=== PATIENT | female | born 2000 | race Caucasian/White ===

== ENCOUNTER 2021-08-04 09:57 | Emergency (ER) | payer OTHER ==
[2021-08-04 10:34] VITALS: BP 98/65; PULSE 74; TEMP 97.9; BMI 47.8
[2021-08-04] MEDS ORDERED: cefTRIAXone SODIUM 1 GM VIAL ONE (11:50)
[2021-08-04 12:34] LABS: BASO % 0.4 % (0-2.0); EOS % 1.6 % (0-4.5); HEMATOCRIT 38.7 % (32.4-45.2); LYMPH % 34.4 % (8-40); MCH 26.6 pg (25.7-33.7); MCHC 33.5 g/dl (32.0-36.0); MEAN CELL VOLUME 79.5 fl (80-96); MEAN PLT VOLUME 7.6 fl (7.5-11.1); MONO % 5.3 % (3.8-10.2); NEUT % 58.3 % (42.8-82.8); PLATELET COUNT 327 10^3/uL (134-434); RBC 4.87 M/mm3 (3.60-5.2); WHITE BLOOD COUNT 7.4 K/mm3 (4.0-10.0)
[2021-08-04 12:36] LABS: URINE APPEARANCE CLEAR; URINE BILIRUBIN NEGATIVE (NEGATIVE); URINE COLOR YELLOW; URINE GLUCOSE (UA) NEGATIVE (NEGATIVE); URINE KETONE NEGATIVE (NEGATIVE); URINE LEUK ESTERASE NEGATIVE (NEGATIVE); URINE NITRITE NEGATIVE (NEGATIVE); URINE PROTEIN NEGATIVE (NEGATIVE); URINE UROBILINOGEN 0.2 mg/dL (0.2-1.0)
[2021-08-04 12:48] LABS: HCG,QUALITATIVE URINE NEGATIVE
[2021-08-04 13:05] LABS: CALCIUM 8.8 mg/dL (8.5-10.1)
[2021-08-04 13:06] LABS: ALBUMIN 3.7 g/dl (3.4-5.0); BLOOD UREA NITROGEN 13.4 mg/dL (7-18)
[2021-08-04 13:09] LABS: CREATININE 0.6 mg/dL (0.55-1.3)
[2021-08-04 13:11] LABS: BILIRUBIN,TOTAL 0.4 mg/dL (0.2-1); TOT PROT 7.3 g/dl (6.4-8.2)
== END 2021-08-04 13:15 | disposition left against medical advice (07) ==
LOC: JER 09:57
DX: R10.2 Pelvic and perineal pain (principal)
CPT/HCPCS: 36415; 80053; 81003; 84703; 85025; 87070; 87086; 87205; 87491; 87591; 99284-25

== ENCOUNTER 2022-06-09 16:21 | Emergency (ER) | payer OTHER ==
[2022-06-09 17:00] VITALS: BP 110/50; PULSE 65; RESP 18; TEMP 98.8; BMI 43.0
[2022-06-09] MEDS ORDERED: DEXAMETHASONE SOD PHOSPHATE 10 MG/1 ML VIAL IM ONE (18:02)
[2022-06-09] MEDS ORDERED: KETOROLAC TROMETHAMINE 30 MG/1 ML VIAL IM ONE (18:02)
[2022-06-09] MEDS ORDERED: KETOROLAC TROMETHAMINE 30 MG/1 ML VIAL ONE (19:03)
[2022-06-09] MEDS ORDERED: DEXAMETHASONE SOD PHOSPHATE 10 MG/1 ML VIAL ONE (19:03)
[2022-06-09] MEDS ORDERED: ACETAMINOPHEN 325 MG TABLET (FP) ONE (19:55)
[2022-06-09] MEDS ORDERED: ACETAMINOPHEN 325 MG TABLET (FP) PO ONE (19:57)
== END 2022-06-09 20:59 | disposition home or self-care (01) ==
LOC: JERFT 16:21 → JER 16:21
PROC: 3E023GC Introduction of Other Therapeutic Substance into Muscle, Percutaneous Approach (ICD-10-PCS; principal; 2022-06-09)
DX: B34.9 Viral infection, unspecified (principal)
CPT/HCPCS: 0241U-QW; 87651; 99284-25; J1100

== ENCOUNTER 2022-10-26 22:28 | Emergency (ER) | payer OTHER ==
[2022-10-26 22:34] VITALS: BP 111/49; PULSE 75; RESP 20; TEMP 97.6; BMI 43.0
== END 2022-10-26 23:53 | disposition home or self-care (01) ==
LOC: JERFT 22:28
DX: R09.81 Nasal congestion (principal); J30.9 Allergic rhinitis, unspecified; H10.13 Acute atopic conjunctivitis, bilateral; Z20.822 Contact with and (suspected) exposure to COVID-19
CPT/HCPCS: 0241U-QW; 99283-25

== ENCOUNTER 2022-11-04 12:48 | Emergency (ER) | payer OTHER ==
[2022-11-04 13:16] VITALS: BP 150/92; PULSE 76; RESP 17; TEMP 98; BMI 48.8
[2022-11-04] MEDS ORDERED: ACETAMINOPHEN 500 MG TABLET (FP) PO ONE (13:22)
[2022-11-04] MEDS ORDERED: ACETAMINOPHEN 500 MG TABLET (FP) ONE (13:23)
== END 2022-11-04 14:44 | disposition home or self-care (01) ==
LOC: JERFT 12:48
DX: M25.571 Pain in right ankle and joints of right foot (principal); M79.671 Pain in right foot; S93.491A Sprain of other ligament of right ankle, initial encounter; X50.1XXA Overexertion from prolonged static or awkward postures, initial encounter
CPT/HCPCS: 73610-TC-RT-FY; 73630-TC-RT-FY; 99283-25

== ENCOUNTER 2022-12-01 08:33 | Emergency (ER) | payer OTHER ==
[2022-12-01 08:39] VITALS: BP 104/56; PULSE 82; RESP 18; TEMP 98.6; BMI 43.0
[2022-12-01] MEDS ORDERED: IBUPROFEN 600 MG TABLET (FP) PO ONE ×2 (09:14→09:17)
== END 2022-12-01 11:24 | disposition home or self-care (01) ==
LOC: JERFT 08:33
DX: S60.111A Contusion of right thumb with damage to nail, initial encounter (principal); X58.XXXA Exposure to other specified factors, initial encounter
CPT/HCPCS: 73140-TC-RT-FY; 99283-25

== ENCOUNTER 2022-12-03 19:32 | Emergency (ER) | payer OTHER ==
[2022-12-03 19:41] VITALS: BP 110/75; PULSE 108; RESP 20; TEMP 98.8; BMI 55.6
[2022-12-03] MEDS ORDERED: SODIUM CHLORIDE 0.9% 500 ML INFUS.BAG IV ONE (21:11)
[2022-12-03] MEDS ORDERED: PROCHLORPERAZINE INJECTION 10 MG/2 ML VIAL IVPB ONE (21:12)
[2022-12-03] MEDS ORDERED: MAG HYDROX/AL HYDROX/SIMETH 30 ML UNIT-DOSE CUP PO ONE (21:13)
[2022-12-03] MEDS ORDERED: FAMOTIDINE 20 MG/50 ML IVPB 20 MG/50 ML MG IVPB ONE (21:13)
[2022-12-03] MEDS ORDERED: ACETAMINOPHEN 500 MG TABLET (FP) PO ONE (21:43)
[2022-12-03] MEDS ORDERED: METOCLOPRAMIDE HCL 10 MG TABLET (FP) PO ONE ×2 (21:43→21:48)
[2022-12-03] MEDS ORDERED: FAMOTIDINE 20 MG TABLET PO ONE (21:43)
[2022-12-03] MEDS ORDERED: MAG HYDROX/AL HYDROX/SIMETH 30 ML UNIT-DOSE CUP ONE (21:48)
[2022-12-03] MEDS ORDERED: ACETAMINOPHEN 500 MG TABLET (FP) ONE (21:48)
[2022-12-03] MEDS ORDERED: FAMOTIDINE 20 MG TABLET ONE (21:48)
== END 2022-12-03 22:16 | disposition home or self-care (01) ==
LOC: JERFT 19:32
DX: R51.9 Headache, unspecified (principal); R05.2 Subacute cough; R07.0 Pain in throat; R09.3 Abnormal sputum; R14.0 Abdominal distension (gaseous); R11.10 Vomiting, unspecified; J30.81 Allergic rhinitis due to animal (cat) (dog) hair and dander
CPT/HCPCS: 87651; 99283-25

== ENCOUNTER 2023-01-21 17:56 | Emergency (ER) | payer OTHER ==
[2023-01-21 18:03] VITALS: BMI 48.8
[2023-01-21] MEDS ORDERED: ONDANSETRON *ODT* 4 MG TABLET SL ONE (18:51)
[2023-01-21 19:04] LABS: EPI CELLS 22 /uL (0-25.1); HYALINE CASTS 0 /uL (0-3.1); PH,URINE 7.5 (5.0-8.0); URINE APPEARANCE CLEAR; URINE BACTERIA 966 /uL (0-1359); URINE BILIRUBIN NEGATIVE (NEGATIVE); URINE COLOR YELLOW; URINE GLUCOSE (UA) NEGATIVE (NEGATIVE); URINE KETONE NEGATIVE (NEGATIVE); URINE LEUK ESTERASE TRACE (NEGATIVE); URINE NITRITE NEGATIVE (NEGATIVE); URINE PROTEIN NEGATIVE (NEGATIVE); URINE RBC 19 /uL (0-23.9); URINE WBC 47 /uL (0-25.8)
[2023-01-21] MEDS ORDERED: ONDANSETRON *ODT* 4 MG TABLET ONE (19:26)
[2023-01-21 19:39] LABS: BASO % 0.2 % (0-2.0); EOS % 1.8 % (0-4.5); HEMATOCRIT 40.3 % (32.4-45.2); HEMOGLOBIN 13.6 GM/dL (10.7-15.3); LYMPH % 34.4 % (8-40); MCH 26.1 pg (25.7-33.7); MCHC 33.7 g/dl (32.0-36.0); MEAN CELL VOLUME 77.3 fl (80-96); MEAN PLT VOLUME 7.2 fl (7.5-11.1); MONO % 5.2 % (3.8-10.2); NEUT % 58.4 % (42.8-82.8); PLATELET COUNT 309 10^3/uL (134-434); RBC 5.21 M/mm3 (3.60-5.2); RDW 13.8 % (11.6-15.6); WHITE BLOOD COUNT 8.5 K/mm3 (4.0-10.0)
[2023-01-21 19:41] VITALS: BP 108/57; PULSE 92; RESP 16; TEMP 98.2
[2023-01-21 19:52] LABS: BLOOD UREA NITROGEN 11.5 mg/dL (7-18)
[2023-01-21 19:55] LABS: CREATININE 0.7 mg/dL (0.55-1.3)
[2023-01-21 20:02] LABS: CALCIUM 8.6 mg/dL (8.5-10.1)
== END 2023-01-21 20:25 | disposition home or self-care (01) ==
LOC: JER 17:56
DX: R11.2 Nausea with vomiting, unspecified (principal); R82.71 Bacteriuria
CPT/HCPCS: 36415; 80048; 81003; 84703; 85025; 87086; 99283-25; Q0162

== ENCOUNTER 2023-11-16 00:07 | Emergency (ER) | payer OTHER ==
[2023-11-16 00:14] VITALS: BP 119/73; PULSE 100; RESP 18; TEMP 98.1; BMI 55.6
== END 2023-11-16 00:47 | disposition home or self-care (01) ==
LOC: JER 00:07
DX: Z48.00 Encounter for change or removal of nonsurgical wound dressing (principal)
CPT/HCPCS: 99281-25